=== PATIENT | male | born 1945 | race Caucasian/White ===

== ENCOUNTER 2020-09-27 09:58 | Inpatient (IN) | payer MEDICARE ==
[~2020-09-27] VITALS: Ht 182.9 cm; Wt 108.4 kg
[2020-09-27 11:07] LABS: HEMOGLOBIN 14.7 gm/dl (14.0-17.5); RED BLOOD COUNT 5.69 M/UL (4.20-5.50); WHITE BLOOD COUNT 9.7 K/UL (4.5-11.0)
[2020-09-27 11:27] LABS: BUN/CREATININE RATIO 13 (0-10)
[2020-09-27] MEDS ORDERED: BACTRIM DS TAB1 EACH PO (13:58)
[2020-09-27] MEDS ORDERED: FUROSEMIDE20 MG PO (13:59)
[2020-09-27] MEDS ORDERED: HYDROCODONE-AC1 EACH PO (13:59)
[2020-09-27] MEDS ORDERED: ELIQUIS5 MG PO (13:59)
[2020-09-27] MEDS ORDERED: ZYRTEC10 MG PO (14:00)
[2020-09-27] MEDS ORDERED: LISINOPRIL10 MG PO (14:00)
[2020-09-27] MEDS ORDERED: LOPRESSOR100 MG PO (14:00)
[2020-09-27] MEDS ORDERED: FLONASE 0.05% N16 GM (14:01)
[2020-09-27] MEDS ORDERED: CLEOCIN HCL300 MG PO (14:01)
[2020-09-27] MEDS ORDERED: ASPIRIN EC81 MG PO (14:49)
[2020-09-27] MEDS ORDERED: MAG-OX 400 TAB400 MG PO (14:50)
[2020-09-28 03:55] LABS: HEMOGLOBIN 14.6 gm/dl (14.0-17.5); RED BLOOD COUNT 5.68 M/UL (4.20-5.50); WHITE BLOOD COUNT 10.4 K/UL (4.5-11.0)
--- NOTE | 2020-09-28 18:13 | NUR ---
PT ARRIVED TO UNIT AT 17:55, ON CARDIZEM DRIP AT 10 INCREASED TO 15 AT THIS TIME DUE TO HR 130-140'S, ALSO ON HEPARIN DRIP AT 1800 UNITS/HR, PT ALERT AND ORIENTED, ON ROOM AIR, WILL CONTINUE TO MONITOR
--- NOTE | 2020-09-28 21:00 | NUR ---
AT 12:[address] ANTOINE THAT PT, PER TELEMETRY WAS IN AFIB. DR. ANTOINE INSTRUCTED ME TO BOLUS ONE LITER OF NORMAL SALINE, HAVE A 12 LEAD EKG PERFORMED AND GIVE PO METOPROLOL 12.5MG AND CALL WITH BLOOD PRESSURE AND HEART RATE. PT'S HEART RATE WAS STILL ELEVATED, DR. ATNOINE PRESCRIBED IV PUSH METOPROLOL. AFTER 30 MIN, PT'S BLOOD PRESSURE AND HEART RATE WERE STILL ELEVATED AT 128/[address] ANTOINE THEN INSTRUCTED THAT PT WOULD BE MOVED TO PCU FLOOR DUE TO HIS AFIB AND HISTORY OF AFIB. JAH ARRIVED ON THE FLOOR AROUND 1600 TO HELP WITH A TIRATED DRIP OF HEPARIN AND CARDIZEM PER DR. ANTOINE'S INSTRUCTIONS. PT WAS TRANSFERRED TO PCU AT 1810. PT DENIED ANY CHEST PAIN OR DIZZINESS AT THE TIME. PT HAS A HISTORY OF AFIB AND PT EXPERIENCED AFIB WITH [facility] ACCORDING TO TELEMETRY.
[2020-09-29 05:20] LABS: HEMOGLOBIN 14.3 gm/dl (14.0-17.5); RED BLOOD COUNT 5.51 M/UL (4.20-5.50); WHITE BLOOD COUNT 9.7 K/UL (4.5-11.0)
[2020-09-30 04:43] LABS: HEMOGLOBIN 14.7 gm/dl (14.0-17.5); RED BLOOD COUNT 5.71 M/UL (4.20-5.50); WHITE BLOOD COUNT 10.8 K/UL (4.5-11.0)
== END 2020-09-30 13:55 | disposition left against medical advice (07) | DRG 603 ==
LOC: ER1 09:58 → CDU 14:01 → MED SURG 4 14:01 → PROG CARE 09-28 18:05
PROVIDERS: Family Medicine; Physician Assistant; ADMIT Family Medicine
DX: L02.611 Cutaneous abscess of right foot (principal); E87.1 Hypo-osmolality and hyponatremia; I25.10 Atherosclerotic heart disease of native coronary artery without angina pectoris; Z95.1 Presence of aortocoronary bypass graft; I48.0 Paroxysmal atrial fibrillation; Z79.01 Long term (current) use of anticoagulants; Z86.73 Personal history of transient ischemic attack (TIA), and cerebral infarction without residual deficits; I10 Essential (primary) hypertension; M10.9 Gout, unspecified; Z88.6 Allergy status to analgesic agent; Z79.82 Long term (current) use of aspirin
CPT/HCPCS: 36415; 71045; 73630; 73721; 80048; 80053; 80202; 83036; 83605; 84550; 85025; 85610; 85652; 85730; 86140; 87040; 87070; 87205; 90471; 93005; 93926; 96365; 96366; 96368; 96376; 99285; J1644; J2405; J2543; J2765; J3370; J7030; J7070; U0002